=== PATIENT | male | born 1965 | race American Indian/Alaskan Native ===

== ENCOUNTER 2020-12-28 06:05 | Observation (INO) | payer BC ==
[2020-12-24 10:27] LABS: Hematocrit 44.5 % (35.5-45.6); Hemoglobin 15.6 gm/dl (11.8-15.2); Mean Corpuscular HGB Conc 35 % (32-34); Mean Corpuscular Volume 90 fl (84-94); Platelet Count 235 K/mm3 (140-440); Red Blood Count 4.96 M/mm3 (3.65-5.03); Red Cell Distribution Width 13.4 % (13.2-15.2)
--- NOTE | 2020-12-24 10:28 | Anesthesia Consultation ---
Anesthesia Consult and Med Hx Date of service: 12/28/20 - Airway Anesthetic Teeth Evaluation: Crowns (Implants) ROM Head & Neck: Adequate Mental/Hyoid Distance: Adequate Mallampati Class: Class III Intubation Access Assessment: Possibly Difficult - Pre-Operative Health Status ASA Pre-Surgery Classification: ASA2 Proposed Anesthetic Plan: General - Pulmonary Hx Smoking: No Hx Respiratory Symptoms: No (+2FS) Hx Sleep Apnea: No ([place] PRE SCREEN HIGH RISK) - Cardiovascular System Hx Hypertension: Yes (X 20 YRS) - Central Nervous System Hx Back Pain: Yes (CHRONIC- WITH STEPHANIE ARM AND LEG PAIN) Hx Psychiatric Problems: No - Hematic Hx Anemia: No Hx Sickle Cell Disease: No - Other Systems Hx Cancer: Yes (LYMPH NODE IN NECK 15YRS AGO,TX= SURGERY,RADIATION)
[2020-12-24 10:46] LABS: Alanine Aminotransferase 117 units/L (7-56); Albumin 4.7 g/dL (3.9-5); BUN/Creatinine Ratio 14; Blood Urea Nitrogen 11 mg/dL (9-20); Calcium 9.3 mg/dL (8.4-10.2); Hemolysis Index 4
[~2020-12-28 06:05] MED LIST: ACETAMINOPHEN 500 MG TAB PO SCH; CELECOXIB 200 MG CAP PO NR; GABAPENTIN 300 MG CAP PO NR; LACTATED RINGERS 1,000 ML IV SCH; MAGNESIUM OXIDE 400 MG TAB PO SCH; MIDAZOLAM 2 MG/2 ML INJ IV NR
[2020-12-28] MEDS ORDERED: BACTERIOSTATIC SODIUM CHLORIDE 0.9% 30 ML VIAL INFILTRATI ONE (06:25)
[2020-12-28] MEDS ORDERED: fentaNYL 100 MCG/2 ML INJ ONE ×2 (07:09→08:22)
[2020-12-28] MEDS ORDERED: propofoL 200 MG/20 ML VIAL IV ONE (07:09)
[2020-12-28] MEDS ORDERED: LIDOCAINE MPF (2%) 20 MG/1 ML VIAL 5 ML ONE (07:09)
--- NOTE | 2020-12-28 07:10 | Anesthesia Day of Surgery ---
Anesthesia Day of Surgery - Day of Surgery Patient Examined: Yes Patient H&P Reviewed: Yes Patient is NPO: Yes
[2020-12-28] MEDS ORDERED: GENTAMICIN/NS 80 MG/100 ML 100 ML IV NR (07:12)
[2020-12-28] MEDS ORDERED: BUPIVACAINE/PF (0.5%) 5 MG/1 ML 30 ML VIAL INFILTRATI ONE ×2 (07:13→08:33)
[2020-12-28] MEDS ORDERED: VANCOMYCIN/NS 1 GM/250 ML 1 GM/250 ML BAG IV NR (07:13)
[2020-12-28] MEDS ORDERED: rifAMPin 600 MG VIAL ONE (07:14)
[2020-12-28] MEDS ORDERED: SODIUM CHLORIDE 0.9% 500 ML 500 ML ONE ×2 (07:14)
[2020-12-28] MEDS ORDERED: BUPIVACAINE/PF (0.25%) 2.5 MG/ML 30 ML VIAL INFILTRATI ONE (07:14)
[2020-12-28] MEDS ORDERED: SODIUM CHLORIDE P/F VIAL 10 ML 10 ML ONE (07:14)
[2020-12-28] MEDS ORDERED: NEOMY 40 MG/POLYMYXIN B 200,000 UNITS/ML (GU) AMPULE IR ONE ×2 (07:14→08:32)
[2020-12-28] MEDS ORDERED: GENTAMICIN 40 MG/ML VIAL 2 ML ONE (07:14)
[2020-12-28] MEDS ORDERED: SODIUM CHLORIDE 0.9% 0 ML ONE (07:14)
[2020-12-28] MEDS ORDERED: ONDANSETRON 4 MG/2 ML INJ IV PRN ×2 (07:22→10:00)
[2020-12-28] MEDS ORDERED: HYDROmorphone 1 MG/1 ML INJ IV PRN (07:22)
[2020-12-28] MEDS ORDERED: SODIUM CHLORIDE P/F VIAL 10 ML 0 ML ONE (07:23)
[2020-12-28] MEDS ORDERED: VANCOMYCIN 1,250 MG in SODIUM CHLORIDE 0.9% 250ML 250 ML IV NR (07:30)
[2020-12-28] MEDS ORDERED: PHENYLEPHRINE/NS 1,000 MCG/10 ML SYRINGE (OR USE) IV ONE ×2 (07:47→09:25)
[2020-12-28] MEDS ORDERED: dexAMETHasone 20 MG/5 ML VIAL ONE (08:18)
[2020-12-28] MEDS ORDERED: ONDANSETRON 4 MG/2 ML INJ ONE (08:19)
[2020-12-28] MEDS ORDERED: SODIUM CHLORIDE 0.9% IRR 1,500 ML BOTTLE IR ONE (08:30)
[2020-12-28] MEDS ORDERED: SODIUM CHLORIDE 0.9% 500 ML IVPB IRRIGATION ONE (08:31)
[2020-12-28] MEDS ORDERED: GENTAMICIN 40 MG/ML VIAL 2 ML IV ONE (08:32)
[2020-12-28] MEDS ORDERED: rifAMPin 600 MG VIAL IV ONE (08:33)
[2020-12-28] MEDS ORDERED: SODIUM CHLORIDE 0.9% P/F 10 ML VIAL INFILTRATI ONE (08:34)
--- NOTE | 2020-12-28 09:42 | Short Stay Summary ---
Short Stay Documentation Date of service: 12/28/20 - History H&P: obtained from office - Allergies and Medications Current Medications: Allergies No Known Allergies Allergy (Verified 12/22/20 16:25) Home Medications Medication Instructions Recorded Confirmed Last Taken Type Losartan [Cozaar] 100 mg PO QDAY 12/22/20 12/22/20 12/28/20 05:30 History Montelukast [Singulair] 10 mg PO QPM 12/22/20 12/28/20 12/27/20 History Oxycodone HCl/Acetaminophen 1 each PO Q6HR PRN 12/22/20 12/22/20 Unknown History [Percocet 10/325 mg] Simvastatin 20 mg PO DAILY 12/22/20 12/22/20 12/28/20 05:30 History Active Medications Acetaminophen (Acetaminophen 500 Mg Tab) 1,000 mg PO ONCE KAUSHIK Stop: 12/28/20 21:00 Last Admin: 12/28/20 06:45 Dose: 1,000 mg Documented by: Celecoxib (Celecoxib 200 Mg Cap) 400 mg PO PREOP NR Stop: 12/28/20 21:00 Last Admin: 12/28/20 06:45 Dose: 400 mg Documented by: Gabapentin (Gabapentin 300 Mg Cap) 600 mg PO PREOP NR Stop: 12/28/20 21:00 Last Admin: 12/28/20 06:45 Dose: 600 mg Documented by: Hydromorphone HCl (Hydromorphone 1 Mg/1 Ml Inj) 0.5 mg IV Q10MIN PRN PRN Reason: Pain , Severe (7-10) Stop: 12/28/20 20:00 Lactated Ringer's (Lactated Ringers) 1,000 mls @ 125 mls/hr IV DIRECT KAUSHIK Last Admin: 12/28/20 07:00 Dose: 125 mls/hr Documented by: Gentamicin Sulfate/Sodium Chloride (Gentamicin/Ns 80 Mg/100 Ml) 100 mls @ 200 mls/hr IV ONCE NR; Protocol Stop: 12/28/20 20:00 Vancomycin HCl 1,250 mg/ (Sodium Chloride) 275 mls @ 166.667 mls/hr IV PREOP NR Stop: 12/28/20 20:00 Magnesium Oxide (Magnesium Oxide 400 Mg Tab) 400 mg PO ONCE KAUSHIK Stop: 12/28/20 21:00 Last Admin: 12/28/20 06:45 Dose: 400 mg Documented by: Midazolam HCl (Midazolam 2 Mg/2 Ml Inj) 2 mg IV PREOP NR Stop: 12/28/20 23:59 Last Admin: 12/28/20 07:05 Dose: 2 mg Documented by: Ondansetron HCl (Ondansetron 4 Mg/2 Ml Inj) 4 mg IV ONCE PRN PRN Reason: Nausea And Vomiting Stop: 12/28/20 20:00 - Brief post op/procedure progress note Date of procedure: 12/28/20 Pre-op diagnosis: ED, phimosis Post-op diagnosis: same Procedure: ipp (coloplast 24cm), circ Anesthesia: GETA Surgeon: AMAYA MCKENNA Estimated blood loss: 50-100ml Pathology: list (foreskin) Specimen disposition: to lab Condition: stable - Hospital course Hospital course: pt has pain meds & circumcision post oozing from circ---- silver nitrate sticks--stopped home with dressing at circ site---remove in am - Disposition Condition at discharge: Stable Disposition: DC-01 TO HOME OR SELFCARE Short Stay Discharge Plan Follow up with: OTTO APPLE MD [Primary Care Provider] - 7 Days
[2020-12-28] MEDS ORDERED: NON-FORMULARY EACH (Losartan [Cozaar] 100 MG Tablet) PO SCH (10:00)
[2020-12-28] MEDS ORDERED: NON-FORMULARY EACH (Simvastatin [Simvastatin] 20 MG Tablet) PO SCH (10:00)
[2020-12-28] MEDS ORDERED: NALOXONE 0.4 MG/1 ML INJ IV PRN (10:00)
[2020-12-28] MEDS ORDERED: ACETAMINOPHEN 325 MG TAB PO PRN (10:00)
--- NOTE | 2020-12-28 11:16 | Operative Report ---
DATE OF SURGERY: 12/28/2020 PREOPERATIVE DIAGNOSES: Erectile dysfunction, phimosis. POSTOPERATIVE DIAGNOSES: Erectile dysfunction phimosis. PROCEDURE: Insertion of inflatable penile prosthesis (coloplast), injection of intracorporeal pharmacologic agent, circumcision. SURGEON: Johnathon Page MD ENROLLMENT COUNSELOR: Ivett Piña. ANESTHESIA: General. ESTIMATED BLOOD LOSS: Minimal. FLUIDS: Crystalloid. COMPLICATIONS: No complications. INDICATIONS: This patient is a 55-year-old gentleman seen in the office with a history of hypertension and hyperlipidemia. He was refractory to medical management for his erectile dysfunction. He is also having phimosis and cracking of his foreskin and confirmed on exam. Discussed options and you reviewed the video for a penile prosthesis. He agreed to proceed with the procedure. DESCRIPTION OF PROCEDURE: The patient was taken to the operative suite, placed in a supine position. After adequate general anesthesia, he was prepped and draped in a sterile fashion. Macdonald catheter was placed on the operative field. A [place] retractor was used for exposure. 6 mL of 0.25% Marcaine was injected in the right corporal body. Mild curvature to the left maybe 10 degrees. No obvious plaque could be appreciated. A transscrotal incision was made with a Bovie. Sharp dissection was taken down to the corporal bodies. A 2-0 Vicryl stay sutures were placed. Corporotomies were made. Measurements, left and right revealed 24 cm. Therefore, a 24 cm Coloplast Titan implant was prepped, 125 mL reservoir was prepared, placed in the retropubic space via the right external ring. 125 mL of saline was placed without difficulty. The 24 cm cylinders were then prepped, placed in the corporal bodies with the aid of the [place]ano needle. The pump was then connected with the quick click connection system after the tubing was trimmed to allow adequate cosmetic appearance. The insufflation of the device revealed an excellent appearance. It was deflated. The quick click connection system was then used for the connection to the reservoir and pump. Copious irrigation was performed. Adequate hemostasis was achieved. Next, attention was taken to his foreskin, was retracted with some scarring, it was marked at the level of the coronal ridge. Dorsal and ventral slit was made. Foreskin was circumferentially removed and sent for routine pathologic evaluation. Adequate hemostasis was achieved on the shaft. Proximal and distal shaft skin was reapproximated and closed with a 3-0 chromic in interrupted fashion. Xeroform gauze was placed around the incision. Scrotal incision was placed in a horizontal fashion after the dartos layer was closed with a 2-0 Vicryl in a running fashion. Skin was closed with a 3-0 Vicryl in interrupted fashion. Collodion was placed, Xeroform gauze as well as a mummy wrap. The patient tolerated the procedure well, was extubated and taken to recovery room. Ivett Piña was present at the bedside to assist with surgical dissection throughout the procedure. He was extubated and taken to recovery room. He will be observed overnight. TID: [id number] RECEIPT: [id number] ANDRIY/DENTON ENRIQUE
[2020-12-28] MEDS: SODIUM CHLORIDE 0.45% 1000 ML 1,000 ML IV SCH ×2 (11:29→21:49)
--- NOTE | 2020-12-28 11:43 | Post Anesthesia Evaluation ---
- Post Anesthesia Evaluation Patient Participated: Yes Airway Patent: Yes Stable Respiratory Function: Yes Nausea/Vomiting: No Temp > 96.8F: Yes Pain Manageable: Yes Adequeate Hydration: Yes Anesthesia Complications: No Other Comments: Awaiting bed availability.
--- NOTE | 2020-12-28 11:51 | Consultation ---
History of Present Illness - Reason for Consult Consult date: 12/28/20 Medical management - History of Present Illness 55-year-old male with a medical history of chronic back pain, hypertension, hyperlipidemia, erectile dysfunction admitted for penile prosthesis and circumcision by urology. He has refractory erectile dysfunction and was seen by urology in the office who recommended treatment. Medical team consulted for medical management. Patient is on losartan, simvastatin and Percocet for his chronic medical conditions. Patient seen and examined Patient seen and examined at bedside in PACU. Has no complaints. He mentions that he takes about 2 beers a day. Denies any history of alcohol withdrawal symptoms. He took his a.m. medications today prior to arrival to the hospital. Home medications have been reconciled by primary team. Past History Past Medical History: hypertension, hyperlipidemia, other (Chronic back pain, erectile dysfunction) Past Surgical History: appendectomy, Other (Lymph node surgery) Social history: alcohol abuse (More than 2 beers a day) Medications and Allergies Allergies Allergy/AdvReac Type Severity Reaction Status Date / Time No Known Allergies Allergy Verified 12/22/20 16:25 Home Medications Medication Instructions Recorded Confirmed Last Taken Type Losartan [Cozaar] 100 mg PO QDAY 12/22/20 12/22/20 12/28/20 05:30 History Montelukast [Singulair] 10 mg PO QPM 12/22/20 12/28/20 12/27/20 History Oxycodone HCl/Acetaminophen 1 each PO Q6HR PRN 12/22/20 12/22/20 Unknown History [Percocet 10/325 mg] Simvastatin 20 mg PO DAILY 12/22/20 12/22/20 12/28/20 05:30 History Active Meds: Active Medications Acetaminophen (Acetaminophen 500 Mg Tab) 1,000 mg PO ONCE KAUSHIK Stop: 12/28/20 21:00 Last Admin: 12/28/20 06:45 Dose: 1,000 mg Documented by: Acetaminophen (Acetaminophen 325 Mg Tab) 650 mg PO Q4H PRN PRN Reason: Pain MILD(1-3)/Fever >100.5/GEORGE Hydrocodone Bitart/Acetaminophen (Hydrocodone/Acetaminophen 5-325 Mg Tab) 2 each PO Q6H PRN PRN Reason: Pain, Moderate (4-6) Celecoxib (Celecoxib 200 Mg Cap) 400 mg PO PREOP NR Stop: 12/28/20 21:00 Last Admin: 12/28/20 06:45 Dose: 400 mg Documented by: Gabapentin (Gabapentin 300 Mg Cap) 600 mg PO PREOP NR Stop: 12/28/20 21:00 Last Admin: 12/28/20 06:45 Dose: 600 mg Documented by: Hydromorphone HCl (Hydromorphone 1 Mg/1 Ml Inj) 0.5 mg IV Q10MIN PRN PRN Reason: Pain , Severe (7-10) Stop: 12/28/20 20:00 Last Admin: 12/28/20 10:10 Dose: 0.5 mg Documented by: Lactated Ringer's (Lactated Ringers) 1,000 mls @ 125 mls/hr IV DIRECT KAUSHIK Last Admin: 12/28/20 07:00 Dose: 125 mls/hr Documented by: Gentamicin Sulfate/Sodium Chloride (Gentamicin/Ns 80 Mg/100 Ml) 100 mls @ 200 mls/hr IV ONCE NR; Protocol Stop: 12/28/20 20:00 Vancomycin HCl 1,250 mg/ (Sodium Chloride) 275 mls @ 166.667 mls/hr IV PREOP NR Stop: 12/28/20 20:00 Sodium Chloride (Nacl 0.45% 1000 Ml) 1,000 mls @ 125 mls/hr IV DIRECT KAUSHIK Last Admin: 12/28/20 11:29 Dose: 125 mls/hr Documented by: Cefazolin Sodium (Ancef/Ns 1 Gm/50 Ml) 1 gm in 50 mls @ 100 mls/hr IV Q8H KAUSHIK; Protocol Losartan Potassium (Losartan 50 Mg Tab) 100 mg PO QDAY KAUSHIK Magnesium Oxide (Magnesium Oxide 400 Mg Tab) 400 mg PO ONCE KAUSHIK Stop: 12/28/20 21:00 Last Admin: 12/28/20 06:45 Dose: 400 mg Documented by: Midazolam HCl (Midazolam 2 Mg/2 Ml Inj) 2 mg IV PREOP NR Stop: 12/28/20 23:59 Last Admin: 12/28/20 07:05 Dose: 2 mg Documented by: Montelukast Sodium (Montelukast 10 Mg Tab) 10 mg PO QPM KAUSHIK Morphine Sulfate (Morphine 2 Mg/1 Ml Inj) 2 mg IV Q4H PRN PRN Reason: Pain, Moderate (4-6) Naloxone HCl (Naloxone 0.4 Mg/1 Ml Inj) 0.1 mg IV Q2MIN PRN PRN Reason: Res Rate </= 8 or 02 SAT < 92% Ondansetron HCl (Ondansetron 4 Mg/2 Ml Inj) 4 mg IV ONCE PRN PRN Reason: Nausea And Vomiting Stop: 12/28/20 20:00 Ondansetron HCl (Ondansetron 4 Mg/2 Ml Inj) 4 mg IV Q8H PRN PRN Reason: Nausea And Vomiting Pravastatin Sodium (Pravastatin 40 Mg Tab) 40 mg PO QHS KAUSHIK Sodium Chloride (Sodium Chloride 0.9% 10 Ml Flush Syringe) 10 ml IV BID KAUSHIK Sodium Chloride (Sodium Chloride 0.9% 10 Ml Flush Syringe) 10 ml IV PRN PRN PRN Reason: LINE FLUSH Zolpidem Tartrate (Zolpidem 5 Mg Tab) 5 mg PO QHS PRN PRN Reason: Insomnia Review of Systems All systems: negative Exam - Constitutional Vitals: Temp Pulse Resp BP Pulse Ox 97 F L 89 20 119/73 99 12/28/20 09:56 12/28/20 10:40 12/28/20 10:40 12/28/20 10:40 12/28/20 10:40 General appearance: Present: no acute distress, well-nourished - EENT Eyes: Present: PERRL ENT: hearing intact, clear oral mucosa - Neck Neck: Present: supple, normal ROM - Respiratory Respiratory effort: normal Respiratory: bilateral: CTA - Cardiovascular Heart Sounds: Present: S1 & S2. Absent: rub, click - Extremities Extremities: pulses symmetrical, No edema Peripheral Pulses: within normal limits - Abdominal General gastrointestinal: Present: soft, non-tender, non-distended, normal bowel sounds Male genitourinary: Present: normal - Integumentary Integumentary: Present: clear, warm, dry - Musculoskeletal Musculoskeletal: gait normal, strength equal bilaterally - Psychiatric Psychiatric: appropriate mood/affect, intact judgment & insight - Neurologic Neurologic: CNII-XII intact, moves all extremities Results - Labs CBC & Chem 7: 12/24/20 09:40 12/24/20 09:40 Assessment and Plan #Refractory erectile dysfunction of phimosis of foreskin #Hypertension #Hyperlipidemia #Chronic back pain Recommendations He is now s/p penile prosthesis and circumcision Rest of surgical management per urology Continue home medications Monitor for alcohol withdrawal. [facility] protocol Pain medications as needed Thank you for the consult
[2020-12-28] MEDS ORDERED: LORazepam 2 MG/ML VIAL IV PRN ×3 (11:56)
[2020-12-28] MEDS: ceFAZolin/NS 1 GM/50 ML 1 GM/50 ML BAG IV SCH ×2 (15:06→21:42)
[2020-12-28] MEDS ORDERED: MONTELUKAST 10 MG TAB PO SCH (18:00)
[2020-12-28] MEDS: PRAVASTATIN 40 MG TAB PO SCH ×2 (21:43→21:56)
[2020-12-28] MEDS: HYDROcodone/ACETAMINOPHEN 5-325 MG TAB PO PRN (21:50)
[2020-12-28] MEDS ORDERED: ZOLPIDEM 5 MG TAB PO PRN (22:00)
[2020-12-29] MEDS: MORPHINE 2 MG/1 ML INJ IV PRN ×2 (01:02→06:12)
[2020-12-29] MEDS: ceFAZolin/NS 1 GM/50 ML 1 GM/50 ML BAG IV SCH ×2 (04:04→13:43)
[2020-12-29 08:30] VITALS: BP 130/80
[2020-12-29] MEDS ORDERED: LOSARTAN 50 MG TAB PO SCH (10:00)
[2020-12-29] MEDS: HYDROcodone/ACETAMINOPHEN 5-325 MG TAB PO PRN (11:51)
--- NOTE | 2020-12-29 14:51 | Progress Note ---
Assessment and Plan Assessment and Plan #Refractory erectile dysfunction ---S/p IPP #Hypertension #Hyperlipidemia #Chronic back pain Recommendations He is now s/p penile prosthesis and circumcision Rest of surgical management per urology Continue home medications Monitor for alcohol withdrawal. [facility] protocol Pain medications as needed Subjective Date of service: 12/29/20 Principal diagnosis: IPP Interval history: 55-year-old male with a medical history of chronic back pain, hypertension, hyperlipidemia, erectile dysfunction admitted for penile prosthesis and circumcision by urology. He has refractory erectile dysfunction and was seen by urology in the office who recommended treatment. Medical team consulted for medical management. Patient is on losartan, simvastatin and Percocet for his chronic medical conditions. Patient seen and examined Patient seen and examined at bedside in PACU. Has no complaints. He mentions that he takes about 2 beers a day. Denies any history of alcohol withdrawal symptoms. He took his a.m. medications today prior to arrival to the hospital. Home medications have been reconciled by primary team. Objective - Constitutional Vitals: Vital Signs - 12hr 12/29/20 12/29/20 12/29/20 05:16 07:31 11:47 Temperature 98.9 F 98.4 F Pulse Rate 80 83 83 Respiratory 18 16 Rate Blood Pressure 130/80 130/80 Blood Pressure 131/61 [Left] O2 Sat by Pulse 96 97 Oximetry General appearance: Present: no acute distress, well-nourished - EENT Eyes: PERRL, EOM intact ENT: hearing intact, clear oral mucosa Ears: bilateral: normal - Neck Neck: supple, normal ROM - Respiratory Respiratory effort: normal Respiratory: bilateral: CTA - Breasts Breasts: normal - Cardiovascular Heart rate: 78 Rhythm: regular Heart Sounds: Present: S1 & S2. Absent: gallop, rub Extremities: pulses intact, No edema, normal color, Full ROM - Gastrointestinal General gastrointestinal: Present: soft, non-tender, non-distended, normal bowel sounds Rectal Exam: deferred - Genitourinary Male genitourinary: normal - Integumentary Integumentary: clear, warm, dry - Musculoskeletal Musculoskeletal: 1, strength equal bilaterally - Neurologic Neurologic: moves all extremities - Psychiatric Psychiatric: memory intact, appropriate mood/affect, intact judgment & insight - Allied health notes Allied health notes reviewed: nursing, case management - Labs CBC & Chem 7: 12/24/20 09:40 12/24/20 09:40
== END 2020-12-29 13:55 | disposition home or self-care (01) ==
LOC: OR 06:05 → 3A 09:42 → 3B-SURG 13:43
PROVIDERS: ADMIT Urology; ATTEND Urology
DX: N52.01 Erectile dysfunction due to arterial insufficiency (principal); N47.1 Phimosis; I10 Essential (primary) hypertension; E29.1 Testicular hypofunction; C85.90 Non-Hodgkin lymphoma, unspecified, unspecified site; G89.29 Other chronic pain; M54.9 Dorsalgia, unspecified; Z90.49 Acquired absence of other specified parts of digestive tract
CPT/HCPCS: 36415; 54401; 80053; 85027; 88304; 96361; 96365; 96366; 96375; 96376; C1813; G0378; J0690; J1100; J1170; J1580; J2250; J2270; J2370; J2405; J2704; J3010; J3370; J3490; J7030; J7040; J7050; J7120; A9270-GY